=== PATIENT | female | born 1980 | race Caucasian/White ===

== ENCOUNTER 2016-12-12 12:19 | Emergency (ER) | payer OTHER ==
--- NOTE | ~2016-12-12 | CR72 ---
[facility] A Service of [facility] RADIOLOGY TEXT RESULTS PATIENT: ELY VILLEDA LOCATION: SED : 82 UNIT #: [id number] AGE: [address]: Vickie Renteria MD SEX: F ORDER DR: [id number] [address] [address] [id number] MR#: [id number] Acc #: [id number] NAME: ELY VILLEDA : 1980 SEX: F STUDY DATE/TIME: 12/12/2016 UNIT: SED ROOM: STUDY DESCRIPTION: CR Chest Single View Portable Attending Physician: Vickie Renteria M.D. Ordering Physician: Vickie Renteria M.D. Primary Care Physician: Luzmaria John A.P.R.N. MEDICAL IMAGING REPORT This report is preliminary unless electronic signature is present. EXAM Chest portable 12/12/2016 1237 hours HISTORY 36-year-old woman with midsternal chest pain this morning. COMPARISON 07/10/2015 FINDINGS Single portable upright view is limited by low lung volumes and large body habitus. Heart size is at the upper limits of normal. The pulmonary vascularity is normal. I believe the lung bases are clear; however, the overlying soft tissues resultant in haziness at both bases. IMPRESSION Film is limited by large body habitus and low lung volumes. The heart size is within normal limits. I believe the lungs are clear, and the hazy density over both bases is related to overlying soft tissues. No definite effusion or pneumothorax. Dictated by... Deana Thomas M.D. THIS IS AN ELECTRONICALLY VERIFIED REPORT Deana Thomas M.D. at 12/12/2016 5:38 PM GABBIE/kely TD: 12/12/2016 15:52 JOB #: [id number] [facility] A Service of [facility] RADIOLOGY TEXT RESULTS PATIENT: ELY VILLEDA LOCATION: SED : 82 UNIT #: [id number] AGE: [address]: Vickie Renteria MD SEX: F ORDER DR: MEDICAL IMAGING REPORT Page 1 of 1
--- NOTE | ~2016-12-12 | EKG ---
PATIENT: ELY VILLEDA UNIT #: [id number] Ventricular Rate: 88 BPM Atrial Rate: 88 BPM P-R Interval: 170 ms QRS Duration: 80 ms Q-T Interval: 364 ms QTC Calculation(Bezet): 440 ms P Bonneau: 50 degrees Calculated R Bonneau: 26 degrees Calculated T Bonneau: 32 degrees Diagnosis Line: Normal sinus rhythm Diagnosis Line: Possible Left atrial enlargement Diagnosis Line: Borderline ECG Diagnosis Line: When compared with ECG of 27-FEB-2016 10:23, Diagnosis Line: No significant change was found Diagnosis Line: Confirmed by FUNMI RIVAS MD ([id number]) on Diagnosis Line: 12/15/2016 12:44:19 PM INTERPRETING MD: ROB MARY
[~2016-12-12 12:19] MED LIST: ABILIFY2 MG PO; EFFEXOR PO; EFFEXOR XR; GLUCOTROL PO; IRON1 TAB PO; KEFLEX500 M1 PO; METFORMIN PO; METHADONE PO; ZOLOFT PO
[2016-12-12 12:49] LABS: BASOPHIL# 0.1 X10e3 (0-0.3); BASOPHIL% 0.9 % (0-2.5); EOSINOPHIL# 0.1 X10e3 (0-0.7); EOSINOPHIL% 1.9 % (0.0-7.0); HEMATOCRIT 38.1 % (35.0-45.0); HEMOGLOBIN 12.2 gm/dL (12.0-16.0); LYMPHOCYTE# 1.6 X10e3 (1.0-3.5); LYMPHOCYTE% 25.4 % (17.0-45.0); MEAN CELL VOLUME 79.4 FL (83-96); MEAN CORPUSCULAR HEMOGLOBIN 25.4 PG (28-34); MEAN PLATELET VOLUME 7.6 FL (6.5-11.5); MONOCYTE# 0.3 X10e3 (0-1.0); MONOCYTE% 5.2 % (3.0-12.0); NEUTROPHIL# 4.1 X10e3 (1.5-7.1); NEUTROPHIL% 66.6 % (40-75); PLATELET COUNT 179 X10e3 (140-420); RED CELL DISTRIBUTION WIDTH 16.5 % (11.0-15.5); WHITE BLOOD COUNT 6.2 X10e3 (4.0-10.5)
[2016-12-12 12:52] LABS: DIFF IND NO
[2016-12-12 12:59] LABS: POC - CKMB 1.1 ng/mL (0.0-7.9); POC - TROPONIN <0.05 ng/mL (<=0.05)
[2016-12-12 13:08] LABS: PROTHROMBIN TIME (PATIENT) 11.5 SECONDS (9.5-12.4)
[2016-12-12 13:16] LABS: ALBUMIN SERUM 4.1 g/dL (3.5-5.0); BILIRUBIN, DIRECT 0.1 mg/dL (0.0-0.2); BILIRUBIN,INDIRECT 0.3 mg/dL (0.0-0.9); BILIRUBIN,TOTAL 0.4 mg/dL (0.2-2.0); BUN/CREATININE RATIO 11.42; CALCIUM SERUM 8.8 mg/dL (8.4-10.2); CREATININE SERUM 0.7 mg/dL (0.6-1.4); GLOM FILT RATE Estimated 112.3 mL/min (>60); MAGNESIUM 1.7 mg/dL (1.6-3.0); PARTIAL THROMBOPLASTIN TIME 26.3 SECONDS (25.6-38.1); POTASSIUM 3.4 mmol/L (3.5-5.1); PROTEIN TOTAL SERUM 7.3 g/dL (6.0-8.3)
[2016-12-12 13:23] LABS: DDIMER <200 NG/ML (0-200)
[2016-12-12 14:57] LABS: POC - CKMB 1.1 ng/mL (0.0-7.9)
[2016-12-12 14:58] LABS: POC - TROPONIN <0.05 ng/mL (<=0.05)
== END 2016-12-12 15:25 | disposition home or self-care (01) ==
LOC: SED 12:19
PROVIDERS: Student in an Organized Health Care Education/Training Program
DX: R07.89 Other chest pain (principal); Z88.2 Allergy status to sulfonamides; Z88.1 Allergy status to other antibiotic agents; Z88.8 Allergy status to other drugs, medicaments and biological substances; Z79.899 Other long term (current) drug therapy
CPT/HCPCS: 36415; 71010; 80048; 80076; 82553; 83735; 83880; 84484; 84703; 85025; 85379; 85610; 85730; 93005; 96374; 99285; J1885